=== PATIENT | male | born 1950 | race Hispanic/Latino ===

== ENCOUNTER 2021-03-09 09:17 | Inpatient (IN) | payer MEDICAID, SELFPAY ==
[~2021-03-09 09:17] MED LIST: Iopamidol-370 76% 500 ML 1 ML ONE
[2021-03-09] MEDS ORDERED: Ondansetron PF 4 MG/2 ML Vial ONE ×2 (09:48→14:50)
[2021-03-09 09:53] LABS: #Lymphocytes 1.1 thou/uL (1.20-3.40); #Monocytes 0.9 thou/uL (0.11-0.59); #Neutrophils 16.8 thou/uL (1.40-6.50); %Basophils 0.1 % (0.0-1.0); %Lymphocytes 5.9 % (21.0-51.0); %Monocytes 4.9 % (0.0-10.0); %Neutrophils 89.1 % (42.0-75.0); Hemoglobin 15.2 g/dL (14.0-18.0); Mean Corpuscular HGB CONC 34.9 g/dL (32.0-36.0); Mean Corpuscular Volume 88.8 fL (78.0-98.0); Mean Platelet Volume 9.1 fL (7.4-10.4); Platelet Count 154 thou/uL (130-400); RBC Distribution Width 11.4 % (11.5-14.5); White Blood Cell (WBC) Count 18.9 thou/uL (4.8-10.8)
[2021-03-09 10:13] LABS: ALT (SGPT) 56 U/L (8-55); AST (SGOT) 42 U/L (5-34); Albumin 4.6 g/dL (3.4-4.8); Alkaline Phosphatase 80 U/L (40-110); Anion Gap 20 mmol/L (10-20); BUN (Urea Nitrogen) 39 mg/dL (8.4-25.7); Bilirubin, Total 1.1 mg/dL (0.2-1.2); Calc. Creatinine Clearance 0 mL/min (70-130); Calcium 10.4 mg/dL (7.8-10.44); Carbon Dioxide 26 mmol/L (23-31); Chloride 98 mmol/L (98-107); Globulin 3.8 g/dL (2.4-3.5); Glucose 250 mg/dL (80-115); Potassium 4.8 mmol/L (3.5-5.1); Protein, Total 8.4 g/dL (5.8-8.1); Sodium 139 mmol/L (136-145)
[2021-03-09] MEDS ORDERED: Morphine 4 MG/ML VIAL ONE (14:45)
[2021-03-09] MEDS ORDERED: Acetaminophen 325 MG TAB PO PRN (17:21)
[2021-03-09] MEDS: Sodium Chloride 0.9% 1,000 ML IV SCH (19:30)
[2021-03-09] MEDS ORDERED: Dextrose 5% in Water 1,000 ML IV PRN (20:49)
[2021-03-09] MEDS ORDERED: Insulin Regular 300 UNITS/3 ML VIAL SC PRN ×2 (20:49)
[2021-03-09] MEDS ORDERED: Dextrose 50% Abboject 50 ML SYRINGE SLOW IVP PRN (20:49)
[2021-03-09 21:22] LABS: Bacteria/HPF None Seen HPF (None Seen); Bilirubin Negative (Negative); Blood, Urine Negative (Negative); Clarity Clear (Clear); Glucose, Urine (Dipstick) 100 mg/dL (Negative); Ketone, Urine Negative (Negative); Leukocyte Negative Leu/uL (Negative); Nitrite Negative (Negative); Protein, Urine (Dipstick) 10 mg/dL (Neg-Trace); RBC/HPF None Seen HPF (0-3); Squamous Epithelial 0-3 HPF (0-3); Urobilinogen Normal mg/dL (Less than 2); WBC/HPF 0-3 HPF (0-3)
[2021-03-09 21:23] LABS: Specific Gravity, Urine 1.057 (1.002-1.036)
[2021-03-09 21:24] LABS: Urine Culture Reflex No No
[2021-03-09 21:37] VITALS: BMI 26.2
[2021-03-09] MEDS: Promethazine HCl 25 MG in Sodium Chloride 0.9% 50 ML IVPB PRN (22:25)
[2021-03-10] MEDS: Sodium Chloride 0.9% 1,000 ML IV SCH ×4 (05:05→23:27)
[2021-03-10 05:58] LABS: Hemoglobin A1c 7.4 % (4.0-6.0)
[2021-03-10 05:59] LABS: Hemoglobin 14.7 g/dL (14.0-18.0); Mean Corpuscular HGB CONC 34.4 g/dL (32.0-36.0); Mean Corpuscular Hemoglobin 31.1 pg (27.0-31.0); Mean Corpuscular Volume 90.6 fL (78.0-98.0); Platelet Count 142 thou/uL (130-400); RBC Distribution Width 11.6 % (11.5-14.5); Red Blood Cell (RBC) Count 4.73 mill/uL (4.70-6.10)
[2021-03-10 06:18] LABS: Phosphorus 3.4 mg/dL (2.3-4.7)
[2021-03-10 06:20] LABS: ALT (SGPT) 34 U/L (8-55); AST (SGOT) 25 U/L (5-34); Alkaline Phosphatase 67 U/L (40-110); Bilirubin, Direct 0.4 mg/dL (0.1-0.3); Bilirubin, Total 0.8 mg/dL (0.2-1.2); Protein, Total 7.3 g/dL (5.8-8.1)
[2021-03-10 06:21] LABS: Band 14 % (5-11); Lymphocytes 2 % (21-51); MDiff Complete? YES; Monocytes 5 % (0-10); Neutrophil 79 % (42-75)
[2021-03-10 06:22] LABS: Anion Gap 14 mmol/L (10-20); BUN (Urea Nitrogen) 31 mg/dL (8.4-25.7); Calc. Creatinine Clearance 51 mL/min (70-130); Calcium 9.3 mg/dL (7.8-10.44); Carbon Dioxide 25 mmol/L (23-31); Cardiac Risk 2.8 (Less than 4.5); Chloride 108 mmol/L (98-107); Cholesterol 102 mg/dl (< 200 Desired); Glucose 174 mg/dL (80-115); HDL Cholesterol 37 mg/dL (>60 Neg Risk); LDL Cholesterol, Calculated 56 mg/dL; Sodium 143 mmol/L (136-145); Triglycerides 46 mg/dL (Less than 150)
[2021-03-10 06:47] LABS: SARS-CoV-2 PCR by NAA Not Detected (NotDetected)
[2021-03-10] MEDS: Promethazine HCl 25 MG in Sodium Chloride 0.9% 50 ML IVPB PRN (10:21)
[2021-03-10] MEDS ORDERED: Enalaprilat Dihydrate 1.25 MG/ML VIAL SLOW IVP PRN (16:57)
[2021-03-10] MEDS ORDERED: Lisinopril 20 MG TAB PO SCH (17:00)
[2021-03-10] MEDS: Folic Acid 1 MG TAB PO SCH (22:02)
[2021-03-10] MEDS: Multivit, Therapeutic 1 TAB PO SCH (22:02)
[2021-03-10] MEDS: Thiamine 100 MG TAB PO SCH (22:02)
[2021-03-10] MEDS: Ondansetron PF 4 MG/2 ML Vial IVP PRN (22:06)
[2021-03-11 06:38] LABS: #Lymphocytes 1.5 thou/uL (1.20-3.40); #Monocytes 1.4 thou/uL (0.11-0.59); #Neutrophils 16.2 thou/uL (1.40-6.50); %Basophils 0.1 % (0.0-1.0); %Eosinophils 0.2 % (0.0-10.0); %Lymphocytes 7.7 % (21.0-51.0); %Monocytes 7.2 % (0.0-10.0); %Neutrophils 84.9 % (42.0-75.0); Hemoglobin 12.9 g/dL (14.0-18.0); Mean Corpuscular HGB CONC 33.9 g/dL (32.0-36.0); Mean Corpuscular Hemoglobin 30.7 pg (27.0-31.0); Mean Corpuscular Volume 90.7 fL (78.0-98.0); Mean Platelet Volume 8.5 fL (7.4-10.4); Platelet Count 124 thou/uL (130-400); RBC Distribution Width 11.5 % (11.5-14.5); Red Blood Cell (RBC) Count 4.21 mill/uL (4.70-6.10); White Blood Cell (WBC) Count 19.1 thou/uL (4.8-10.8)
[2021-03-11 06:52] LABS: ALT (SGPT) 24 U/L (8-55); AST (SGOT) 22 U/L (5-34); Albumin 3.4 g/dL (3.4-4.8); Alkaline Phosphatase 65 U/L (40-110); Anion Gap 6 mmol/L (10-20); BUN (Urea Nitrogen) 16 mg/dL (8.4-25.7); Calc. Creatinine Clearance 77 mL/min (70-130); Calcium 8.6 mg/dL (7.8-10.44); Carbon Dioxide 29 mmol/L (23-31); Chloride 106 mmol/L (98-107); Glucose 161 mg/dL (80-115); Lipase 129 U/L (8-78); Potassium 3.4 mmol/L (3.5-5.1); Protein, Total 6.4 g/dL (5.8-8.1); Sodium 138 mmol/L (136-145)
[2021-03-11] MEDS: Lisinopril 20 MG TAB PO SCH (08:25)
[2021-03-11] MEDS: Potassium Chloride 20 MEQ TAB PO SCH ×2 (08:26→16:51)
[2021-03-11] MEDS: Ondansetron PF 4 MG/2 ML Vial IVP PRN ×2 (10:15→22:04)
[2021-03-11] MEDS ORDERED: Polyethylene Glycol 3350 17 GM Packet PO SCH ×2 (10:30→21:00)
[2021-03-11] MEDS ORDERED: Senokot S 8.6-50 MG TAB PO SCH (10:30)
[2021-03-11] MEDS: Promethazine HCl 25 MG in Sodium Chloride 0.9% 50 ML IVPB PRN (12:18)
[2021-03-11] MEDS: Sodium Chloride 0.9% 1,000 ML IV SCH (16:03)
[2021-03-11] MEDS: cloNIDine 0.1 MG TAB PO PRN (16:51)
[2021-03-11] MEDS: Pantoprazole 40 MG VIAL IVP SCH (22:04)
[2021-03-11] MEDS: Thiamine 100 MG TAB PO SCH (22:04)
[2021-03-11] MEDS: Multivit, Therapeutic 1 TAB PO SCH (22:05)
[2021-03-11] MEDS: Folic Acid 1 MG TAB PO SCH (22:05)
[2021-03-11] MEDS: Senokot S 8.6-50 MG TAB PO SCH (22:05)
[2021-03-12 07:17] LABS: #Eosinphils 0.1 thou/uL (0.0-0.7); #Lymphocytes 1.6 thou/uL (1.20-3.40); #Neutrophils 10.6 thou/uL (1.40-6.50); %Basophils 0.2 % (0.0-1.0); %Eosinophils 0.6 % (0.0-10.0); %Lymphocytes 11.7 % (21.0-51.0); %Monocytes 7.7 % (0.0-10.0); %Neutrophils 79.8 % (42.0-75.0); Hemoglobin 12.1 g/dL (14.0-18.0); Mean Corpuscular HGB CONC 33.9 g/dL (32.0-36.0); Mean Corpuscular Hemoglobin 30.3 pg (27.0-31.0); Mean Corpuscular Volume 89.4 fL (78.0-98.0); Mean Platelet Volume 9.1 fL (7.4-10.4); Platelet Count 125 thou/uL (130-400); RBC Distribution Width 11.5 % (11.5-14.5); Red Blood Cell (RBC) Count 3.98 mill/uL (4.70-6.10); White Blood Cell (WBC) Count 13.3 thou/uL (4.8-10.8)
[2021-03-12 07:44] LABS: ALT (SGPT) 20 U/L (8-55); AST (SGOT) 18 U/L (5-34); Albumin 3.1 g/dL (3.4-4.8); Alkaline Phosphatase 69 U/L (40-110); Anion Gap 12 mmol/L (10-20); BUN (Urea Nitrogen) 12 mg/dL (8.4-25.7); Bilirubin, Total 1.1 mg/dL (0.2-1.2); Calc. Creatinine Clearance 82 mL/min (70-130); Calcium 8.3 mg/dL (7.8-10.44); Carbon Dioxide 22 mmol/L (23-31); Chloride 107 mmol/L (98-107); Globulin 2.9 g/dL (2.4-3.5); Glucose 117 mg/dL (80-115); Magnesium 1.8 mg/dL (1.6-2.6); Potassium 3.4 mmol/L (3.5-5.1); Sodium 138 mmol/L (136-145)
[2021-03-12 08:04] LABS: Phosphorus 1.7 mg/dL (2.3-4.7)
[2021-03-12] MEDS ORDERED: Potassium Phosphate 30 MMOL in Sodium Chloride 0.9% 250 ML 250 ML IVPB SCH (08:45)
[2021-03-12] MEDS ORDERED: Magnesium Sulfate 2 GM in Sodium Chloride 0.9% 100 ML IVPB SCH (08:45)
[2021-03-12] MEDS: Senokot S 8.6-50 MG TAB PO SCH ×2 (08:48→21:53)
[2021-03-12] MEDS: Lisinopril 20 MG TAB PO SCH (08:48)
[2021-03-12] MEDS: Polyethylene Glycol 3350 17 GM Packet PO SCH (08:48)
[2021-03-12] MEDS: Pantoprazole 40 MG VIAL IVP SCH (08:49)
[2021-03-12] MEDS: Sodium Chloride 0.9% 1,000 ML IV SCH (08:54)
[2021-03-12] MEDS ORDERED: Magnesium 2 GM/50 ML 2 GM in Premix Bag 1 BAG IVPB SCH (09:00)
[2021-03-12] MEDS ORDERED: Polyethylene Glycol 3350 17 GM Packet PO SCH (09:00)
[2021-03-12] MEDS: Folic Acid 1 MG TAB PO SCH (21:53)
[2021-03-12] MEDS: Thiamine 100 MG TAB PO SCH (21:53)
[2021-03-12] MEDS: Multivit, Therapeutic 1 TAB PO SCH (21:53)
[2021-03-13 06:01] LABS: #Eosinphils 0.3 thou/uL (0.0-0.7); #Lymphocytes 1.8 thou/uL (1.20-3.40); #Monocytes 0.9 thou/uL (0.11-0.59); #Neutrophils 7.9 thou/uL (1.40-6.50); %Basophils 0.4 % (0.0-1.0); %Eosinophils 2.4 % (0.0-10.0); %Lymphocytes 16.8 % (21.0-51.0); %Monocytes 7.9 % (0.0-10.0); %Neutrophils 72.6 % (42.0-75.0); Hemoglobin 12.7 g/dL (14.0-18.0); Mean Corpuscular HGB CONC 35.6 g/dL (32.0-36.0); Mean Corpuscular Hemoglobin 31.5 pg (27.0-31.0); Mean Corpuscular Volume 88.4 fL (78.0-98.0); Mean Platelet Volume 8.2 fL (7.4-10.4); Platelet Count 132 thou/uL (130-400); RBC Distribution Width 11.4 % (11.5-14.5); Red Blood Cell (RBC) Count 4.02 mill/uL (4.70-6.10); White Blood Cell (WBC) Count 10.8 thou/uL (4.8-10.8)
[2021-03-13 06:28] LABS: ALT (SGPT) 24 U/L (8-55); AST (SGOT) 21 U/L (5-34); Albumin 3.1 g/dL (3.4-4.8); Alkaline Phosphatase 76 U/L (40-110); Anion Gap 11 mmol/L (10-20); BUN (Urea Nitrogen) 9 mg/dL (8.4-25.7); Calc. Creatinine Clearance 87 mL/min (70-130); Calcium 8.4 mg/dL (7.8-10.44); Carbon Dioxide 22 mmol/L (23-31); Chloride 105 mmol/L (98-107); Globulin 3.1 g/dL (2.4-3.5); Glucose 108 mg/dL (80-115); Magnesium 2.1 mg/dL (1.6-2.6); Phosphorus 2.4 mg/dL (2.3-4.7); Potassium 3.4 mmol/L (3.5-5.1); Protein, Total 6.2 g/dL (5.8-8.1); Sodium 135 mmol/L (136-145)
[2021-03-13] MEDS: Senokot S 8.6-50 MG TAB PO SCH (08:31)
[2021-03-13] MEDS: Lisinopril 20 MG TAB PO SCH (08:32)
[2021-03-13] MEDS: Polyethylene Glycol 3350 17 GM Packet PO SCH (08:32)
[2021-03-13 12:19] VITALS: TEMP 98.7
[2021-03-13] MEDS: cloNIDine 0.1 MG TAB PO PRN (14:20)
[2021-03-13 15:03] VITALS: BP 121/66
== END 2021-03-13 15:08 | disposition home or self-care (01) | DRG 439 ==
LOC: ERS 09:17 → ERHOLD 14:56 → T4-A 19:31
PROVIDERS: ADMIT Internal Medicine; ATTEND Internal Medicine
DX: K85.30 Drug induced acute pancreatitis without necrosis or infection (principal); N17.9 Acute kidney failure, unspecified; K56.7 Ileus, unspecified; Z20.822 Contact with and (suspected) exposure to COVID-19; N18.2 Chronic kidney disease, stage 2 (mild); E87.6 Hypokalemia; E83.39 Other disorders of phosphorus metabolism; E83.42 Hypomagnesemia; R94.5 Abnormal results of liver function studies; F10.21 Alcohol dependence, in remission; I08.3 Combined rheumatic disorders of mitral, aortic and tricuspid valves; E78.00 Pure hypercholesterolemia, unspecified; R01.1 Cardiac murmur, unspecified; E86.0 Dehydration; E11.22 Type 2 diabetes mellitus with diabetic chronic kidney disease; T38.3X5A Adverse effect of insulin and oral hypoglycemic [antidiabetic] drugs, initial encounter; T50.2X5A Adverse effect of carbonic-anhydrase inhibitors, benzothiadiazides and other diuretics, initial encounter; I12.9 Hypertensive chronic kidney disease with stage 1 through stage 4 chronic kidney disease, or unspecified chronic kidney disease; Z79.899 Other long term (current) drug therapy; Z79.84 Long term (current) use of oral hypoglycemic drugs
CPT/HCPCS: 36415; 36416; 74019; 74177; 76705; 76770; 80048; 80053; 80061; 80076; 81001; 83036; 83690; 83735; 84100; 85025; 93005; 93306; 96374; 96375; 96376; C9113; J1815; J2270; J2405; J2550; J3475; J7050; Q9967; U0003; U0005